=== PATIENT | female | born 1985 | race Caucasian/White ===

== ENCOUNTER 2019-01-19 22:59 | Emergency (ER) | payer OTHER ==
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
== END 2019-01-20 00:23 | disposition home or self-care (01) ==
LOC: JP.ED 22:59
DX: S16.1XXA Strain of muscle, fascia and tendon at neck level, initial encounter (principal); S39.012A Strain of muscle, fascia and tendon of lower back, initial encounter; F32.9 Major depressive disorder, single episode, unspecified; Z79.899 Other long term (current) drug therapy; V49.50XA Passenger injured in collision with unspecified motor vehicles in traffic accident, initial encounter
CPT/HCPCS: 99282